=== PATIENT | male | born 1980 | race African-American/Black ===

== ENCOUNTER 2024-05-23 16:21 | Inpatient (IN) | payer OTHER ==
[2024-05-23 17:38] VITALS: BMI 23.1
[2024-05-23] MEDS ORDERED: MAGNESIUM HYDROX 2400MG/30ML ORAL SUSPENSION 30 ML CUP PO PRN (17:44)
[2024-05-23] MEDS ORDERED: LOPERAMIDE HCL 2 MG CAPSULE PO PRN (17:44)
[2024-05-23] MEDS ORDERED: MAG HYDROX/AL HYDROX/SIMETH 30 ML UNIT-DOSE CUP PO PRN (17:44)
[2024-05-23] MEDS ORDERED: IBUPROFEN 400 MG TABLET (FP) PO PRN (17:44)
[2024-05-23] MEDS ORDERED: BENZOCAINE/MENTHOL (CHLORASEPTIC ) LOZENGE MM PRN (17:44)
[2024-05-23] MEDS ORDERED: ACETAMINOPHEN 325 MG TABLET (FP) PO PRN (17:44)
[2024-05-23] MEDS ORDERED: BENZONATATE 200 MG CAPSULE PO PRN (17:44)
[2024-05-23] MEDS ORDERED: POLYETHYLENE GLYCOL (HEALTHYLAX) 3350 17 GM PACKET PO PRN (17:44)
[2024-05-23] MEDS ORDERED: guaiFENesin 600 MG TABLET.ER (FP) PO PRN (17:44)
[2024-05-23] MEDS ORDERED: DICYCLOMINE HCL 10 MG CAPSULE PO PRN (17:44)
[2024-05-23] MEDS ORDERED: BISMUTH SUBSALICYLATE 524 MG/30 ML PO PRN (17:44)
[2024-05-23] MEDS ORDERED: ONDANSETRON *ODT* 4 MG TABLET SL PRN (17:44)
[2024-05-23] MEDS ORDERED: IBUPROFEN 600 MG TABLET (FP) PO PRN (17:44)
[2024-05-23] MEDS ORDERED: hydrOXYzine PAMOATE 25 MG CAPSULE (FP) PO ONE (19:28)
[2024-05-23] MEDS: hydrOXYzine PAMOATE 25 MG CAPSULE (FP) PO PRN (19:30)
[2024-05-23] MEDS: THIAMINE 100 MG TABLET PO SCH (21:09)
[2024-05-23] MEDS: MELATONIN 5 MG TABLETS PO SCH (21:09)
[2024-05-23] MEDS: METHOCARBAMOL 500 MG TABLET PO PRN (21:09)
[2024-05-24] MEDS ORDERED: chlordiazePOXIDE HCL 25 MG CAPSULE PO PRN (09:16)
[2024-05-24] MEDS: PRENATAL VITAMINS W/ FOLIC ACID TABLET (FP) PO SCH (10:14)
[2024-05-24] MEDS: chlordiazePOXIDE HCL 25 MG CAPSULE PO SCH (10:15)
[2024-05-24 15:59] LABS: HEMATOCRIT 42.8 % (35.4-49); HEMOGLOBIN 14.8 GM/dL (11.7-16.9); MCH 38.2 pg (25.7-33.7); MCHC 34.6 g/dl (32.0-35.9); MEAN CELL VOLUME 110.5 fl (80-96); MEAN PLT VOLUME 7.4 fl (7.5-11.1); PLATELET COUNT 134 10^3/uL (134-434); RBC 3.87 M/mm3 (4.00-5.60); RDW 13.3 % (11.9-15.9); WHITE BLOOD COUNT 2.5 K/mm3 (4.0-10.0)
[2024-05-24 16:58] LABS: CHLORIDE 103 mmol/L (98-107); POTASSIUM 3.2 mmol/L (3.5-5.1); SODIUM 140 mmol/L (136-145)
[2024-05-24 16:59] LABS: ALBUMIN 3.9 g/dl (3.4-5.0); CALCIUM 9.5 mg/dL (8.5-10.1)
[2024-05-24 17:00] LABS: ANION GAP 9 mmol/L (4-13); BLOOD UREA NITROGEN 9.4 mg/dL (7-18); CO2 28 mmol/L (21-32); GLUCOSE,RANDOM 91 mg/dL (74-106)
[2024-05-24 17:04] LABS: CREATININE 0.9 mg/dL (0.55-1.3); SGOT/AST 45 U/L (15-37); SGPT/ALT 36 U/L (13-61); TOT PROT 6.7 g/dl (6.4-8.2)
[2024-05-24 17:05] LABS: ALK PHOS 68 U/L (45-117)
[2024-05-25] MEDS: POTASSIUM CHLORIDE ORAL LIQUID 20 MEQ/15 ML PO ONE (12:09)
[2024-05-26] MEDS: chlordiazePOXIDE HCL 25 MG CAPSULE PO SCH (05:55)
[2024-05-26 12:36] LABS: POTASSIUM 3.5 mmol/L (3.5-5.1)
[2024-05-26 12:37] LABS: CALCIUM 9.7 mg/dL (8.5-10.1)
[2024-05-26 12:38] LABS: BLOOD UREA NITROGEN 8.5 mg/dL (7-18)
[2024-05-26 12:41] LABS: CREATININE 0.9 mg/dL (0.55-1.3)
[2024-05-27] MEDS: chlordiazePOXIDE HCL 10 MG CAPSULE PO SCH (06:00)
[2024-05-27] MEDS: chlordiazePOXIDE HCL 10 MG CAPSULE PO PRN (13:11)
[2024-05-28] MEDS: chlordiazePOXIDE HCL 10 MG CAPSULE PO SCH (05:55)
[2024-05-28 06:44] VITALS: RESP 16
[2024-05-28 08:53] VITALS: BP 121/84; PULSE 106; TEMP 97.8
[2024-05-28] MEDS: NALOXONE (NYS OPIOID OVERDOSE PROGRAM) 4 MG/0.1 ML SPRAY NS SCH (09:29)
[2024-05-29] MEDS ORDERED: chlordiazePOXIDE HCL 10 MG CAPSULE PO ONE (05:00)
== END 2024-05-28 09:31 | disposition home or self-care (01) | DRG 775 ==
LOC: YASAS 16:21 → Y3N 18:51
PROVIDERS: ADMIT Allergy & Immunology; ATTEND Surgery
PROC: HZ2ZZZZ Detoxification Services for Substance Abuse Treatment (ICD-10-PCS; principal; 2024-05-23)
DX: F10.230 Alcohol dependence with withdrawal, uncomplicated (principal); F10.280 Alcohol dependence with alcohol-induced anxiety disorder; E87.6 Hypokalemia; G47.00 Insomnia, unspecified
CPT/HCPCS: 36415; 80048; 80053; 80307; 85027; 86593; 86780; 93005; 93010